=== PATIENT | female | born 1980 | race Caucasian/White ===

== ENCOUNTER 2021-06-25 10:19 | Outpatient (REF) | payer OTHER, SELFPAY ==
--- NOTE | ~2021-06-25 | XR_ITS ---
EXAMINATION: XR SINUSES CLINICAL INFORMATION: Sinusitis COMPARISON: None TECHNIQUE: The sinuses are imaged in 5 views. FINDINGS: These sinuses appear well-aerated and clear. There are no air-fluid levels. No visible mucosal thickening or polypoid mass. There is no visible bony sclerosis or destructive process. The visualized mastoid air cells appear clear as well. Lateral view shows no adenoid enlargement. Nasopharynx unremarkable on plain film. XR/XR sinus <3V IMPRESSION: Unremarkable examination.
== END 2021-06-25 10:20 | disposition home or self-care (01) ==
LOC: HO.XRAY 10:19
PROVIDERS: Absent Provider Pediatrics; PCP Pediatrics; Visit Provider Otolaryngology
DX: J32.9 Chronic sinusitis, unspecified (principal)
CPT/HCPCS: 70210